=== PATIENT | female | born 1990 | race Two or more races ===

== ENCOUNTER 2019-09-07 11:04 | Emergency (ER) | payer OTHER ==
[~2019-09-07] VITALS: Ht 157.5 cm; Wt 62.3 kg
[2019-09-07 11:10] VITALS: BP 109/70
[2019-09-07] MEDS ORDERED: DEXAMETHASONE 4 MG/ML, 1ML ONE (11:28)
[2019-09-07] MEDS ORDERED: DEXAMETHASONE 4 MG/ML, 1ML PO ONE (11:30)
== END 2019-09-07 12:05 | disposition home or self-care (01) ==
LOC: ED 11:45
DX: J02.0 Streptococcal pharyngitis (principal)
CPT/HCPCS: 99283; J1100